=== PATIENT | female | born 1990 | race Caucasian/White ===

== ENCOUNTER 2023-11-12 23:03 | Emergency (ER) | payer OTHER, MEDICAID, SELFPAY ==
[2023-11-12 23:26] VITALS: BP 158/88; PULSE 86; RESP 18; TEMP 36.9; O2SAT 98; BMI 34.8
--- NOTE | 2023-11-12 23:40 | EKG_ITS ---
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
[2023-11-12 23:57] VITALS: PULSE 79; RESP 15; O2SAT 96
[2023-11-13] VITALS: BP 136/77; PULSE 82; RESP 17; O2SAT 96
[2023-11-13 00:30] VITALS: BP 143/76; PULSE 77; RESP 18; O2SAT 96
--- NOTE | 2023-11-13 00:35 | ED.CHESTPAIN ---
HPI - Chest Pain General Chief Complaint: Chest Pain Stated Complaint: 21 weeks , covid +, short of breath, CP, Time Seen by Provider: 11/12/23 23:39 Source: patient Mode of arrival: Wheelchair Limitations: no limitations History of Present Illness HPI narrative: Patient is a 33-year-old female. Tested positive for COVID yesterday. Has been having shortness of breath and today chest discomfort. No vomiting. No abdominal pain or vaginal bleeding. Did see her OB doctor yesterday. Was told that if she developed chest discomfort that she needed to come to the emergency department for evaluation. Related Data Allergies Allergy/AdvReac Type Severity Reaction Status Date / Time No Known Drug Allergies Allergy Verified 11/12/23 23:37 Review of Systems Review of Systems Narrative: See HPI Patient History Social History Smoking Status: Never smoker Smoking Status: Never smoker Substance Use Type: does not use Exam Initial Vital Signs Initial Vital Signs: Vital Signs Temperature 98.4 F 11/12/23 23:26 Pulse Rate 86 11/12/23 23:26 Respiratory Rate 18 11/12/23 23:26 Blood Pressure 158/88 H 11/12/23 23:26 Pulse Oximetry 98 11/12/23 23:26 Oxygen Delivery Method Room Air 11/12/23 23:26 Const General: cooperative, comfortable and No ill appearing HENMT Head: normal to inspection and normocephalic Resp Effort & Inspection: normal respiratory effort Auscultation: clear to auscultation bilaterally Cardio Rate: regular rate Rhythm: regular rhythm Skin General: no rashes or lesions noted Neuro General: patient alert, patient awake and moves all extremities Course Orders Ordered: ED Orders 11/12/23 23:39 EKG-12 Lead Stat Vital Signs Vital signs: Vital Signs - 8 hr 11/12/23 23:26 11/12/23 23:57 11/13/23 00:00 Temperature 98.4 F Pulse Rate 86 79 Respiratory Rate 18 15 Blood Pressure 158/88 H 136/77 Pulse Oximetry 98 96 Oxygen Delivery Method Room Air 11/13/23 00:00 11/13/23 00:30 11/13/23 00:30 Temperature Pulse Rate 82 77 Respiratory Rate 17 18 Blood Pressure 143/76 H Pulse Oximetry 96 96 Oxygen Delivery Method MDM - Chest Pain MDM Narrative Medical decision making narrative: Not hypoxic. Not febrile. Not tachypneic. She can take Tylenol as needed for fevers or body aches. No indication for antibiotics. Will discharge home with return precautions she expressed understanding and agreement with plan. Discharge Plan Departure Patient Disposition: Home Clinical Impression: COVID-19, Instructions: COVID-19 Activity Restrictions/Additional Instructions: Be sure that you are staying hydrated. Keep all of your scheduled medical appointments. Follow all current CDC guidelines with regard to quarantine and your positive COVID-19 status. You can take Tylenol for fevers or body aches. Return to the emergency department for new symptoms. Stand Alone Forms: Patient Portal/API
== END 2023-11-13 00:47 | disposition home or self-care (01) ==
PROVIDERS: Emergency Provider Emergency Medicine
DX: O98.512 Other viral diseases complicating pregnancy, second trimester (principal); U07.1 COVID-19; O26.892 Other specified pregnancy related conditions, second trimester; R07.9 Chest pain, unspecified; Z3A.21 21 weeks gestation of pregnancy
CPT/HCPCS: 93005; 99281; 99282